=== PATIENT | female | born 1980 | race Caucasian/White ===

== ENCOUNTER 2019-09-17 11:22 | Inpatient (IN) ==
[2019-09-17] MEDS ORDERED: Ondansetron ODT 4 MG TAB.RAPDIS SL ONE (11:36)
[2019-09-17] MEDS ORDERED: Tdap (Boostrix) Vaccine 0.5 ML SYRINGE IM ONE (11:37)
[2019-09-17] MEDS ORDERED: 0.9 % Sodium Chloride 1,000 ML IVC ONE ×2 (11:37→15:22)
[2019-09-17] MEDS ORDERED: Ondansetron 4 MG/2 ML VIAL IVP ONE (11:42)
[2019-09-17 12:24] LABS: Basophils % 0.2 %; Hematocrit 41.8 % (35.3-44.9); Hemoglobin 13.7 g/dL (11.5-15.4); Immature Granulocytes % 0.7 % (0-4); Lymphocytes # 0.9 K/mcL (0.6-4.6); Lymphocytes % 5.8 %; Mean Corpuscular HGB Conc 32.8 g/dL (31.6-35.5); Mean Corpuscular Volume 85.5 fL (83.0-100.0); Mean Platelet Volume 11.4 fL (9.4-12.4); Monocytes % 5.9 %; Neutrophils # 14.1 K/mcL (1.6-8.9); Platelet Count 238 K/mcL (140-400); Red Blood Count 4.89 M/mcL (3.82-4.97); Red Cell Distribution Width 13.6 % (11.5-14.5); Segmented Neutrophils % 87.4 %; White Blood Count 16.2 K/mcL (4.3-11.1)
[2019-09-17 12:46] LABS: Alanine Aminotransferase 65 Units/L (7-52); Albumin 4.3 g/dL (3.5-5.7); Albumin/Globulin Ratio 1.6 (1.1-2.2); Alkaline Phosphatase 87 Units/L (34-104); Aspartate Amino Transferase 65 Units/L (13-39); BUN/Creatinine Ratio 13 (6-26); Bilirubin,Direct 0.1 mg/dL (0.0-0.2); Bilirubin,Indirect 0.2 mg/dL (0.0-1.0); Bilirubin,Total 0.3 mg/dL (0.3-1.0); Blood Urea Nitrogen 10 mg/dL (6-20); Calcium 9.2 mg/dL (8.6-10.3); Carbon Dioxide 23 mEq/L (23-29); Chloride 102 mEq/L (98-107); Globulin 2.7 g/dL (2.4-3.5); Glucose 296 mg/dL (70-105); Lipase 10 Units/L (11-82); Osmolality,Calculated 294 (280-300); Sodium 137 mEq/L (136-145); eGFR For African Americans > 60 (> 60); eGFR For Non-African Americans > 60 (> 60)
[2019-09-17 12:52] LABS: Troponin I 0.22 ng/mL (< 0.04)
[2019-09-17] MEDS ORDERED: Isovue-370 500 ML BOTTLE IVP ONE (12:57)
[2019-09-17] MEDS ORDERED: Aspirin 81 MG TAB.CHEW PO STA (13:03)
[2019-09-17 13:54] LABS: Bilirubin,Urine Negative (Negative); Blood,Urine Negative (Negative); Clarity,Urine Clear (Clear); Color,Urine Yellow (Yellow); Glucose,Urine (UA) >=1000 mg/dL (Normal); Ketones,Urine 40 mg/dL (Negative); Leukocyte Esterase,Urine Negative (Negative); Nitrite,Urine Negative (Negative); PH,Urine 5.5 pH Units (5.0-8.0); Protein,Urine Negative (Neg-Trace); Specific Gravity,Urine > 1.030 (1.010-1.025); Urobilinogen,Urine Normal (Normal)
[2019-09-17 14:11] LABS: Hepatitis B Surface Antigen Nonreactive (Nonreactive)
[2019-09-17 14:39] LABS: Hepatitis C Virus Antibody Nonreactive (Nonreactive)
[2019-09-17 14:40] LABS: Hepatitis B Core IgM Nonreactive (Nonreactive)
[2019-09-17 14:41] LABS: Hepatitis A Antibody IgM Nonreactive (Nonreactive)
[2019-09-17] MEDS ORDERED: Piperacillin/Tazobactam 3.375 GM in 0.9 % Sodium Chloride Mini Bag 100 ML IVPB ONE (15:23)
[2019-09-17] MEDS ORDERED: Nicotine 21 MG PATCH.TD24 TD STA (15:59)
[2019-09-17 16:03] LABS: C-Reactive Protein 9 mg/L (Less than 10)
[2019-09-17 16:17] LABS: Amphetamine Screen,Urine Negative ng/mL (Cutoff=1000); Barbiturate Screen,Urine Negative ng/mL (Cutoff=200); Benzodiazepines Screen,Urine Positive ng/mL (Cutoff=200); Cannabinoid Screen,Urine Positive ng/mL (Cutoff = 50); Cocaine Screen,Urine Negative ng/mL (Cutoff= 300); Opiate Screen,Urine Negative ng/mL (Cutoff=300); Phencyclidine Screen,Urine Negative ng/mL (Cutoff=25)
[2019-09-17] MEDS ORDERED: Naloxone 0.4 MG/ML INJ IVP PRN (17:02)
[2019-09-17] MEDS ORDERED: D5% in Water 1,000 ML IVC PRN (17:11)
[2019-09-17] MEDS ORDERED: *HR* Dextrose 50 % in Water (Syg) 50 ML SYRINGE IVP PRN (17:11)
[2019-09-17] MEDS ORDERED: Dextrose Gel 15 GM/37.5 ML TUBE PO PRN ×2 (17:11)
[2019-09-17 17:25] LABS: Estimated Average Glucose 249 mg/dl
[2019-09-17] MEDS: 0.9 % Sodium Chloride 1,000 ML IVC SCH (19:15)
[2019-09-17] MEDS: *HR* Heparin 5,000 UNIT/ML VIAL SQ SCH (19:16)
[2019-09-17] MEDS: Ondansetron 4 MG/2 ML VIAL IVP PRN (19:16)
[2019-09-17 20:37] LABS: Adenovirus Not Detected (Not Detect); Bordetella Pertussis Not Detected (Not Detect); Chlamydophila pneumoniae Not Detected (Not Detect); Coronavirus 229E Not Detected (Not Detect); Coronavirus HKU1 Not Detected (Not Detect); Coronavirus NL63 Not Detected (Not Detect); Coronavirus OC43 Not Detected (Not Detect); Human Metapneumovirus Not Detected (Not Detect); Human Rhinovirus/Enterovirus Not Detected (Not Detect); Influenza A Subtype 2009 H1 Not Detected (Not Detect); Influenza A Untypeable Not Detected (Not Detect); Influenza B Not Detected (Not Detect); Mycoplasma pneumoniae Not Detected (Not Detect); Parainfluenza Virus 1 Not Detected (Not Detect); Parainfluenza Virus 2 Not Detected (Not Detect); Parainfluenza Virus 3 Not Detected (Not Detect); Parainfluenza Virus 4 Not Detected (Not Detect); Respiratory Syncytial Virus Not Detected (Not Detect)
[2019-09-17] MEDS ORDERED: Menthol 9.1 MG LOZENGE PO PRN (20:44)
[2019-09-17] MEDS: Ibuprofen 400 MG TABLET PO PRN (20:44)
[2019-09-17] MEDS: Insulin LISPRO 300 UNITS/3 ML VIAL SQ SCH (21:18)
[2019-09-17] MEDS: ALPRAZolam 1 MG TABLET PO SCH (21:24)
[2019-09-17] MEDS: Gabapentin 400 MG CAPSULE PO SCH (21:24)
[2019-09-17] MEDS: Insulin DETEMIR 100 UNIT/ML X5UNITS SQ SCH (21:24)
[2019-09-17] MEDS ORDERED: *HR* Promethazine 25 MG/ML VIAL IVP ONE (21:36)
[2019-09-18] MEDS: Piperacillin/Tazobactam 3.375 GM in 0.9 % Sodium Chloride Mini Bag 100 ML IVPB SCH ×4 (00:34→23:58)
[2019-09-18] MEDS: 0.9 % Sodium Chloride 1,000 ML IVC SCH ×3 (03:35→18:27)
[2019-09-18] MEDS: *HR* Heparin 5,000 UNIT/ML VIAL SQ SCH ×2 (05:15→18:27)
[2019-09-18] MEDS: Ibuprofen 400 MG TABLET PO PRN (05:23)
[2019-09-18 06:35] LABS: Basophils % 0.1 %; Eosinophils # 0.1 K/mcL (0.0-0.6); Eosinophils % 1.4 %; Hematocrit 32.1 % (35.3-44.9); Hemoglobin 10.7 g/dL (11.5-15.4); Immature Granulocytes % 0.4 % (0-4); Lymphocytes # 2.4 K/mcL (0.6-4.6); Lymphocytes % 34.7 %; Mean Corpuscular HGB Conc 33.3 g/dL (31.6-35.5); Mean Corpuscular Hemoglobin 28.6 pg (28.0-33.3); Mean Corpuscular Volume 85.8 fL (83.0-100.0); Mean Platelet Volume 11.2 fL (9.4-12.4); Monocytes # 0.6 K/mcL (0.0-1.3); Monocytes % 8.2 %; Neutrophils # 3.9 K/mcL (1.6-8.9); Platelet Count 155 K/mcL (140-400); Red Blood Count 3.74 M/mcL (3.82-4.97); Red Cell Distribution Width 13.7 % (11.5-14.5); Segmented Neutrophils % 55.2 %
[2019-09-18 06:53] LABS: BUN/Creatinine Ratio 13 (6-26); Blood Urea Nitrogen 7 mg/dL (6-20); Calcium 7.9 mg/dL (8.6-10.3); Carbon Dioxide 23 mEq/L (23-29); Chloride 106 mEq/L (98-107); Glucose 283 mg/dL (70-105); Magnesium 1.9 mg/dL (1.6-2.6); Osmolality,Calculated 290 (280-300); Potassium 3.6 mEq/L (3.5-5.1); Sodium 136 mEq/L (136-145); eGFR For African Americans > 60 (> 60); eGFR For Non-African Americans > 60 (> 60)
[2019-09-18] MEDS: Ondansetron 4 MG/2 ML VIAL IVP PRN ×2 (08:09→20:56)
[2019-09-18] MEDS ORDERED: *HR* Promethazine 25 MG/ML VIAL IVP PRN (08:42)
[2019-09-18] MEDS ORDERED: Potassium Phosphate 44 MEQ in 0.9 % Sodium Chloride 250 ML IVPB ONE (10:01)
[2019-09-18] MEDS: Insulin LISPRO 300 UNITS/3 ML VIAL SQ SCH ×4 (10:56→20:34)
[2019-09-18] MEDS: Calcium Gluconate 1gm/50mL 1 GM/50 ML BAG IVPB SCH ×2 (11:44→14:38)
[2019-09-18] MEDS: ALPRAZolam 1 MG TABLET PO SCH ×2 (11:45→20:56)
[2019-09-18] MEDS: Gabapentin 400 MG CAPSULE PO SCH ×4 (11:45→20:55)
[2019-09-18] MEDS: Multivit/Ca/Min/Fe/FA 1 TAB TABLET PO SCH (11:45)
[2019-09-18] MEDS: Acetaminophen 325 MG TABLET PO PRN ×2 (11:45→20:55)
[2019-09-18] MEDS: BuPROPion SR (12 HR) 100 MG TABLET PO SCH (11:45)
[2019-09-18] MEDS: Insulin DETEMIR 100 UNIT/ML X5UNITS SQ SCH (20:35)
[2019-09-18] MEDS: Nicotine 21 MG PATCH.TD24 TD SCH (23:57)
[2019-09-19] MEDS: 0.9 % Sodium Chloride 1,000 ML IVC SCH ×2 (04:09→18:00)
[2019-09-19] MEDS: Ondansetron 4 MG/2 ML VIAL IVP PRN ×2 (04:21→12:48)
[2019-09-19] MEDS: *HR* Heparin 5,000 UNIT/ML VIAL SQ SCH ×2 (05:50→17:57)
[2019-09-19] MEDS: Multivit/Ca/Min/Fe/FA 1 TAB TABLET PO SCH (08:22)
[2019-09-19] MEDS: ALPRAZolam 1 MG TABLET PO SCH ×2 (08:22→20:17)
[2019-09-19] MEDS: Gabapentin 400 MG CAPSULE PO SCH ×4 (08:22→20:16)
[2019-09-19] MEDS: BuPROPion SR (12 HR) 100 MG TABLET PO SCH (08:22)
[2019-09-19] MEDS: Piperacillin/Tazobactam 3.375 GM in 0.9 % Sodium Chloride Mini Bag 100 ML IVPB SCH ×3 (08:23→23:43)
[2019-09-19] MEDS: Nicotine 21 MG PATCH.TD24 TD SCH (08:23)
[2019-09-19] MEDS: Ibuprofen 400 MG TABLET PO PRN (08:30)
[2019-09-19 08:31] LABS: Basophils % 0.3 %; Eosinophils # 0.1 K/mcL (0.0-0.6); Eosinophils % 0.7 %; Hematocrit 32.6 % (35.3-44.9); Hemoglobin 10.4 g/dL (11.5-15.4); Immature Granulocytes % 0.3 % (0-4); Lymphocytes # 2.1 K/mcL (0.6-4.6); Lymphocytes % 28.8 %; Mean Corpuscular HGB Conc 31.9 g/dL (31.6-35.5); Mean Corpuscular Hemoglobin 28.1 pg (28.0-33.3); Mean Corpuscular Volume 88.1 fL (83.0-100.0); Mean Platelet Volume 11.1 fL (9.4-12.4); Monocytes # 0.7 K/mcL (0.0-1.3); Monocytes % 9.3 %; Neutrophils # 4.5 K/mcL (1.6-8.9); Platelet Count 148 K/mcL (140-400); Red Cell Distribution Width 13.5 % (11.5-14.5); Segmented Neutrophils % 60.6 %; White Blood Count 7.4 K/mcL (4.3-11.1)
[2019-09-19] MEDS: Insulin LISPRO 300 UNITS/3 ML VIAL SQ SCH ×4 (08:38→20:18)
[2019-09-19 08:58] LABS: Albumin 3.2 g/dL (3.5-5.7); Albumin/Globulin Ratio 1.4 (1.1-2.2); Bilirubin,Direct 0.3 mg/dL (0.0-0.2); Bilirubin,Indirect 0.5 mg/dL (0.0-1.0); Bilirubin,Total 0.8 mg/dL (0.3-1.0); Globulin 2.3 g/dL (2.4-3.5); Total Protein 5.5 g/dL (6.4-8.9)
[2019-09-19] MEDS: Colchicine 0.6 MG TABLET PO SCH ×2 (12:47→20:17)
[2019-09-19] MEDS: Aspirin 81 MG TAB.CHEW PO SCH (12:47)
[2019-09-19] MEDS ORDERED: Potassium Phosphate 44 MEQ in 0.9 % Sodium Chloride 250 ML IVPB ONE (13:10)
[2019-09-19] MEDS: Ibuprofen 400 MG TABLET PO SCH ×2 (14:54→20:16)
[2019-09-19] MEDS: Doxycycline 100 MG in 0.9 % Sodium Chloride Mini Bag 100 ML IVPB SCH (17:57)
[2019-09-19] MEDS: Insulin DETEMIR 100 UNIT/ML X5UNITS SQ SCH (20:17)
[2019-09-20] MEDS: Acetaminophen 325 MG TABLET PO PRN ×2 (01:31→12:54)
[2019-09-20] MEDS: Ondansetron 4 MG/2 ML VIAL IVP PRN ×2 (01:31→12:55)
[2019-09-20 05:03] LABS: Basophils % 0.6 %; Eosinophils # 0.2 K/mcL (0.0-0.6); Eosinophils % 2.5 %; Hematocrit 34.7 % (35.3-44.9); Immature Granulocytes % 0.7 % (0-4); Lymphocytes # 2.5 K/mcL (0.6-4.6); Lymphocytes % 36.2 %; Mean Corpuscular HGB Conc 31.7 g/dL (31.6-35.5); Mean Corpuscular Hemoglobin 28.4 pg (28.0-33.3); Mean Corpuscular Volume 89.7 fL (83.0-100.0); Mean Platelet Volume 11.2 fL (9.4-12.4); Monocytes # 0.6 K/mcL (0.0-1.3); Monocytes % 9.3 %; Neutrophils # 3.5 K/mcL (1.6-8.9); Platelet Count 183 K/mcL (140-400); Red Blood Count 3.87 M/mcL (3.82-4.97); Red Cell Distribution Width 13.7 % (11.5-14.5); Segmented Neutrophils % 50.7 %; White Blood Count 6.9 K/mcL (4.3-11.1)
[2019-09-20 05:19] LABS: Alanine Aminotransferase 114 Units/L (7-52); Albumin 3.6 g/dL (3.5-5.7); Albumin/Globulin Ratio 1.3 (1.1-2.2); Alkaline Phosphatase 112 Units/L (34-104); Aspartate Amino Transferase 61 Units/L (13-39); BUN/Creatinine Ratio 12 (6-26); Bilirubin,Total 0.4 mg/dL (0.3-1.0); Blood Urea Nitrogen 7 mg/dL (6-20); Calcium 8.9 mg/dL (8.6-10.3); Carbon Dioxide 25 mEq/L (23-29); Chloride 105 mEq/L (98-107); Globulin 2.8 g/dL (2.4-3.5); Glucose 175 mg/dL (70-105); Osmolality,Calculated 292 (280-300); Phosphorous 3.5 mg/dL (2.7-4.5); Potassium 3.6 mEq/L (3.5-5.1); Sodium 140 mEq/L (136-145); Total Protein 6.4 g/dL (6.4-8.9); eGFR For African Americans > 60 (> 60); eGFR For Non-African Americans > 60 (> 60)
[2019-09-20] MEDS: Doxycycline 100 MG in 0.9 % Sodium Chloride Mini Bag 100 ML IVPB SCH (06:14)
[2019-09-20] MEDS: *HR* Heparin 5,000 UNIT/ML VIAL SQ SCH (06:14)
[2019-09-20] MEDS ORDERED: Tiotropium 18 MCG inhalation IH SCH (07:00)
[2019-09-20] MEDS: Multivit/Ca/Min/Fe/FA 1 TAB TABLET PO SCH (07:27)
[2019-09-20] MEDS: BuPROPion SR (12 HR) 100 MG TABLET PO SCH (07:27)
[2019-09-20] MEDS: Aspirin 81 MG TAB.CHEW PO SCH (07:27)
[2019-09-20] MEDS: ALPRAZolam 1 MG TABLET PO SCH (07:27)
[2019-09-20] MEDS: Ibuprofen 400 MG TABLET PO SCH (07:27)
[2019-09-20] MEDS: Gabapentin 400 MG CAPSULE PO SCH ×2 (07:27→12:54)
[2019-09-20] MEDS: Nicotine 21 MG PATCH.TD24 TD SCH (07:28)
[2019-09-20] MEDS: Colchicine 0.6 MG TABLET PO SCH (07:28)
[2019-09-20] MEDS: Piperacillin/Tazobactam 3.375 GM in 0.9 % Sodium Chloride Mini Bag 100 ML IVPB SCH (07:30)
[2019-09-20] MEDS: Insulin LISPRO 300 UNITS/3 ML VIAL SQ SCH ×2 (07:44→11:53)
[2019-09-20 11:55] VITALS: BP 152/91
[2019-09-20] MEDS ORDERED: Aminoglycoside Consult 1 EACH MC ONE (13:29)
== END 2019-09-20 13:30 | disposition home or self-care (01) | DRG 139 ==
LOC: 3ANU 11:22 → EMEROOARM 11:22 → 3ANU 16:59 → SUATTDRO 09-18 13:17
PROVIDERS: ADMIT Internal Medicine; ATTEND Internal Medicine

== ENCOUNTER 2019-10-13 14:05 | Observation (INO) ==
[2019-10-13 14:35] LABS: Basophils % 0.4 %; Eosinophils % 0.4 %; Hematocrit 47.6 % (35.3-44.9); Hemoglobin 15.8 g/dL (11.5-15.4); Immature Granulocytes % 0.5 % (0-4); Lymphocytes # 2.1 K/mcL (0.6-4.6); Lymphocytes % 26.8 %; Mean Corpuscular HGB Conc 33.2 g/dL (31.6-35.5); Mean Corpuscular Hemoglobin 28.1 pg (28.0-33.3); Mean Corpuscular Volume 84.5 fL (83.0-100.0); Mean Platelet Volume 11.3 fL (9.4-12.4); Monocytes # 0.6 K/mcL (0.0-1.3); Monocytes % 7.6 %; Platelet Count 296 K/mcL (140-400); Red Blood Count 5.63 M/mcL (3.82-4.97); Segmented Neutrophils % 64.3 %; White Blood Count 7.8 K/mcL (4.3-11.1)
[2019-10-13] MEDS ORDERED: 0.9 % Sodium Chloride 1,000 ML IVC ONE (14:45)
[2019-10-13] MEDS ORDERED: diazePAM 10 MG/2 ML SYRINGE IVP STA (14:45)
[2019-10-13 15:01] LABS: Alanine Aminotransferase 38 Units/L (7-52); Albumin 4.5 g/dL (3.5-5.7); Albumin/Globulin Ratio 1.6 (1.1-2.2); Alkaline Phosphatase 98 Units/L (34-104); Aspartate Amino Transferase 25 Units/L (13-39); BUN/Creatinine Ratio 22 (6-26); Bilirubin,Total 0.4 mg/dL (0.3-1.0); Blood Urea Nitrogen 17 mg/dL (6-20); Calcium 9.4 mg/dL (8.6-10.3); Carbon Dioxide 22 mEq/L (23-29); Chloride 100 mEq/L (98-107); Globulin 2.8 g/dL (2.4-3.5); Glucose 254 mg/dL (70-105); Osmolality,Calculated 288 (280-300); Potassium 3.8 mEq/L (3.5-5.1); Sodium 134 mEq/L (136-145); Total Protein 7.3 g/dL (6.4-8.9); Troponin I < 0.03 ng/mL (< 0.04); eGFR For African Americans > 60 (> 60); eGFR For Non-African Americans > 60 (> 60)
[2019-10-13] MEDS ORDERED: Acetaminophen 325 MG TABLET PO ONE (15:02)
[2019-10-13 15:04] LABS: Bilirubin,Urine Negative (Negative); Blood,Urine Negative (Negative); Clarity,Urine Clear (Clear); Color,Urine Yellow (Yellow); Glucose,Urine (UA) >=1000 mg/dL (Normal); Ketones,Urine Trace mg/dL (Negative); Leukocyte Esterase,Urine Negative (Negative); Nitrite,Urine Negative (Negative); Protein,Urine Negative (Neg-Trace); Specific Gravity,Urine > 1.030 (1.010-1.025); Urobilinogen,Urine Normal (Normal)
[2019-10-13 15:25] LABS: Carbamazepine (Tegretol) < 1 mcg/mL (4-12)
[2019-10-13] MEDS ORDERED: Naloxone 0.4 MG/ML INJ IVP PRN (19:14)
[2019-10-13] MEDS ORDERED: Ondansetron 4 MG/2 ML VIAL IVP PRN (19:14)
[2019-10-13] MEDS ORDERED: *HR* Dextrose 50 % in Water (Syg) 50 ML SYRINGE IVP PRN (19:16)
[2019-10-13] MEDS ORDERED: D5% in Water 1,000 ML IVC PRN (19:16)
[2019-10-13] MEDS ORDERED: Dextrose Gel 15 GM/37.5 ML TUBE PO PRN ×2 (19:16)
[2019-10-13] MEDS ORDERED: Ipratropium/Albuterol Neb 3 ML IH PRN (19:18)
[2019-10-13] MEDS ORDERED: 0.9 % Sodium Chloride 1,000 ML IVC SCH (20:30)
[2019-10-13] MEDS ORDERED: Insulin DETEMIR 100 UNIT/ML X5UNITS SQ SCH (21:00)
[2019-10-13] MEDS: Nicotine 14 MG PATCH.TD24 TD SCH (21:36)
[2019-10-13] MEDS: ALPRAZolam 0.5 MG TABLET PO SCH (21:37)
[2019-10-13] MEDS: QUEtiapine Fumarate 100 MG TABLET PO SCH (21:37)
[2019-10-13] MEDS: Gabapentin 400 MG CAPSULE PO SCH (21:38)
[2019-10-13] MEDS: *HR* Heparin 5,000 UNIT/ML VIAL SQ SCH (21:38)
[2019-10-14] MEDS ORDERED: traZODone 50 MG TABLET PO ONE (01:06)
[2019-10-14 02:05] LABS: INR 0.9; Prothrombin Time 10.6 Seconds (9.4-12.1)
[2019-10-14 02:08] LABS: Activated Partial Thrombo Time 30.7 Seconds (26.0-36.0)
[2019-10-14 02:22] LABS: BUN/Creatinine Ratio 20 (6-26); Blood Urea Nitrogen 13 mg/dL (6-20); Calcium 8.6 mg/dL (8.6-10.3); Carbon Dioxide 22 mEq/L (23-29); Chloride 107 mEq/L (98-107); Glucose 201 mg/dL (70-105); Magnesium 1.9 mg/dL (1.6-2.6); Osmolality,Calculated 294 (280-300); Phosphorous 2.3 mg/dL (2.7-4.5); Potassium 3.8 mEq/L (3.5-5.1); Sodium 139 mEq/L (136-145); eGFR For African Americans > 60 (> 60); eGFR For Non-African Americans > 60 (> 60)
[2019-10-14] MEDS: ALPRAZolam 0.5 MG TABLET PO SCH ×4 (03:08→22:07)
[2019-10-14] MEDS: *HR* Heparin 5,000 UNIT/ML VIAL SQ SCH ×3 (06:22→22:07)
[2019-10-14] MEDS: Gabapentin 400 MG CAPSULE PO SCH ×4 (08:47→22:07)
[2019-10-14] MEDS: Aspirin 81 MG TAB.CHEW PO SCH (08:48)
[2019-10-14] MEDS: Insulin LISPRO 300 UNITS/3 ML VIAL SQ SCH ×3 (08:48→17:02)
[2019-10-14] MEDS: BuPROPion SR (12 HR) 100 MG TABLET PO SCH (08:48)
[2019-10-14] MEDS: Acetaminophen 325 MG TABLET PO PRN (17:02)
[2019-10-14] MEDS: QUEtiapine Fumarate 100 MG TABLET PO SCH (22:07)
[2019-10-14] MEDS: Nicotine 14 MG PATCH.TD24 TD SCH (22:08)
[2019-10-14] MEDS: Colchicine 0.6 MG TABLET PO SCH (22:15)
[2019-10-15] MEDS: ALPRAZolam 0.5 MG TABLET PO SCH ×5 (03:09→20:34)
[2019-10-15 04:45] LABS: BUN/Creatinine Ratio 21 (6-26); Blood Urea Nitrogen 11 mg/dL (6-20); Calcium 8.2 mg/dL (8.6-10.3); Carbon Dioxide 23 mEq/L (23-29); Chloride 100 mEq/L (98-107); Glucose 329 mg/dL (70-105); Magnesium 1.8 mg/dL (1.6-2.6); Osmolality,Calculated 286 (280-300); Phosphorous 3.2 mg/dL (2.7-4.5); Potassium 3.6 mEq/L (3.5-5.1); Sodium 132 mEq/L (136-145); eGFR For African Americans > 60 (> 60); eGFR For Non-African Americans > 60 (> 60)
[2019-10-15] MEDS: *HR* Heparin 5,000 UNIT/ML VIAL SQ SCH ×3 (05:33→20:35)
[2019-10-15] MEDS: Insulin LISPRO 300 UNITS/3 ML VIAL SQ SCH ×3 (08:15→17:33)
[2019-10-15] MEDS: Colchicine 0.6 MG TABLET PO SCH ×2 (08:15→20:35)
[2019-10-15] MEDS: BuPROPion SR (12 HR) 100 MG TABLET PO SCH (08:16)
[2019-10-15] MEDS: Gabapentin 400 MG CAPSULE PO SCH ×4 (08:16→20:35)
[2019-10-15] MEDS: Aspirin 81 MG TAB.CHEW PO SCH (08:16)
[2019-10-15] MEDS ORDERED: INSULIN DEGLUDEC 60 UNIT SQ SCH (09:00)
[2019-10-15] MEDS ORDERED: (Empagliflozin [Jardiance] 25 MG) PO SCH (09:00)
[2019-10-15] MEDS ORDERED: Tiotropium 18 MCG inhalation IH SCH (10:00)
[2019-10-15] MEDS: Acetaminophen 325 MG TABLET PO PRN (16:15)
[2019-10-15] MEDS ORDERED: *HR* Metformin 500 MG TABLET PO SCH (17:00)
[2019-10-15 19:19] VITALS: BP 137/79
[2019-10-15] MEDS: Nicotine 14 MG PATCH.TD24 TD SCH (20:34)
[2019-10-15] MEDS ORDERED: QUEtiapine Fumarate 100 MG TABLET PO SCH (21:00)
== END 2019-10-15 21:06 | disposition critical access hospital (66) ==
LOC: EMEROOARM 14:05 → 3BNU 14:05 → SUATTDRO 18:47 → 3BNU 19:32
PROVIDERS: ADMIT Student in an Organized Health Care Education/Training Program; ATTEND Internal Medicine

== ENCOUNTER 2022-01-15 21:08 | Inpatient (IN) ==
[2022-01-16] MEDS ORDERED: Naloxone 0.4 MG/ML INJ IVP PRN (01:34)
[2022-01-16] MEDS ORDERED: Melatonin 3 MG TABLET PO PRN (01:34)
[2022-01-16] MEDS ORDERED: Perflutren Lipid Microsphere 1.3 ML in 0.9 % Sodium Chloride 8.7 ML IVP PRN (01:50)
[2022-01-16 02:13] LABS: Basophils # 0.1 K/mcL (0.0-0.2); Basophils % 0.4 %; Eosinophils % 0.1 %; Hematocrit 29.9 % (35.3-44.9); Hemoglobin 9.9 g/dL (11.5-15.4); Immature Granulocytes % 2.6 % (0-4); Lymphocytes # 2.7 K/mcL (0.6-4.6); Lymphocytes % 17.5 %; Mean Corpuscular HGB Conc 33.1 g/dL (31.6-35.5); Mean Corpuscular Hemoglobin 25.9 pg (28.0-33.3); Mean Corpuscular Volume 78.3 fL (83.0-100.0); Mean Platelet Volume 10.1 fL (9.4-12.4); Monocytes % 6.8 %; Neutrophils # 11.1 K/mcL (1.6-8.9); Platelet Count 355 K/mcL (140-400); Red Blood Count 3.82 M/mcL (3.82-4.97); Red Cell Distribution Width 14.1 % (11.5-14.5); Segmented Neutrophils % 72.6 %; White Blood Count 15.2 K/mcL (4.3-11.1)
[2022-01-16] MEDS: Ketorolac 30 MG/ML VIAL IVP PRN ×2 (02:13→08:42)
[2022-01-16] MEDS: Acetaminophen 325 MG TABLET PO PRN ×2 (02:13→10:01)
[2022-01-16 02:21] LABS: INR 1.2; Prothrombin Time 13.6 Seconds (9.4-12.1)
[2022-01-16 02:24] LABS: Activated Partial Thrombo Time 27.3 Seconds (26.0-36.0)
[2022-01-16 02:28] LABS: BUN/Creatinine Ratio 6 (6-26); Blood Urea Nitrogen 3 mg/dL (6-20); Calcium 7.8 mg/dL (8.6-10.3); Carbon Dioxide 23 mEq/L (23-29); Chloride 101 mEq/L (98-107); Glucose 163 mg/dL (70-105); Osmolality,Calculated 276 (280-300); Potassium 3.2 mEq/L (3.5-5.1); Sodium 133 mEq/L (136-145); eGFR For African Americans > 60 (> 60); eGFR For Non-African Americans > 60 (> 60)
[2022-01-16 02:29] LABS: Chol/HDL Ratio 7.8 (0-4.9); Magnesium 1.5 mg/dL (1.6-2.6); Phosphorous 1.3 mg/dL (2.7-4.5)
[2022-01-16] MEDS ORDERED: Potassium Phosphate 44 MEQ in 0.9 % Sodium Chloride 250 ML IVPB ONE (02:48)
[2022-01-16 02:50] LABS: Alanine Aminotransferase 40 Units/L (7-52); Albumin 2.5 g/dL (3.5-5.7); Albumin/Globulin Ratio 0.7 (1.1-2.2); Alkaline Phosphatase 299 Units/L (34-104); Aspartate Amino Transferase 41 Units/L (13-39); Bilirubin,Indirect 0.5 mg/dL (0.0-1.0); Bilirubin,Total 0.5 mg/dL (0.3-1.0); C-Reactive Protein 79 mg/L (Less than 10); Globulin 3.6 g/dL (2.4-3.5); Total Protein 6.1 g/dL (6.4-8.9)
[2022-01-16 03:03] LABS: Thyroid Stimulating Hormone 3.124 mcIU/mL (0.340-5.600)
[2022-01-16 03:07] LABS: Procalcitonin 0.62 ng/mL (0.00-0.15)
[2022-01-16] MEDS ORDERED: *HR* Dextrose 50 % in Water (Syg) 50 ML SYRINGE IVP PRN (03:16)
[2022-01-16] MEDS ORDERED: Dextrose 4 GM Chewable Tablets PO PRN ×2 (03:16)
[2022-01-16] MEDS ORDERED: D5% in Water 1,000 ML IVC PRN (03:16)
[2022-01-16] MEDS ORDERED: Nicotine 21 MG PATCH.TD24 TD PRN (03:20)
[2022-01-16 03:39] LABS: Hepatitis B Surface Antigen Nonreactive (Nonreactive)
[2022-01-16] MEDS ORDERED: Potassium Chloride Elixir 20 MEQ/15 ML UDC PO ONE (03:39)
[2022-01-16] MEDS: Ondansetron ODT 4 MG TAB.RAPDIS SL PRN (03:41)
[2022-01-16 04:07] LABS: Hepatitis B Core IgM Nonreactive (Nonreactive)
[2022-01-16 04:10] LABS: Hepatitis A Antibody IgM Nonreactive (Nonreactive)
[2022-01-16] MEDS ORDERED: Gadolinium Contrast Agent (WT Based) IV PRN (04:46)
[2022-01-16 04:58] LABS: Amphetamine Screen,Urine Negative ng/mL (Cutoff=1000); Barbiturate Screen,Urine Negative ng/mL (Cutoff=200); Benzodiazepines Screen,Urine Negative ng/mL (Cutoff=200); Cannabinoid Screen,Urine Negative ng/mL (Cutoff = 50); Cocaine Screen,Urine Negative ng/mL (Cutoff= 300); Opiate Screen,Urine Positive ng/mL (Cutoff=300); Phencyclidine Screen,Urine Negative ng/mL (Cutoff=25)
[2022-01-16 05:36] LABS: Hepatitis C Virus Antibody Reactive (Nonreactive)
[2022-01-16] MEDS: Piperacillin/Tazobactam 3.375 GM in 0.9 % Sodium Chloride Mini Bag 100 ML IVPB SCH ×3 (05:46→21:05)
[2022-01-16] MEDS: *HR* Enoxaparin 80 MG/0.8 ML SYRINGE SQ SCH ×2 (05:50→16:43)
[2022-01-16] MEDS ORDERED: *HR* Heparin 5,000 UNIT/ML VIAL SQ SCH (06:00)
[2022-01-16] MEDS: Insulin LISPRO 300 UNITS/3 ML VIAL SUBQ SCH ×3 (08:47→16:45)
[2022-01-16] MEDS: Vancomycin 1,250 MG/262.5 ML IV.SOLN IVPB SCH ×2 (10:39→21:04)
[2022-01-16] MEDS: *HR* HYDROcodone/Acet 10/325 mg TABLET PO PRN ×2 (14:07→20:10)
[2022-01-17] MEDS: Ketorolac 30 MG/ML VIAL IVP PRN ×3 (00:48→13:22)
[2022-01-17] MEDS: *HR* HYDROcodone/Acet 10/325 mg TABLET PO PRN ×4 (02:11→20:46)
[2022-01-17] MEDS: Piperacillin/Tazobactam 3.375 GM in 0.9 % Sodium Chloride Mini Bag 100 ML IVPB SCH (04:51)
[2022-01-17] MEDS: *HR* Enoxaparin 80 MG/0.8 ML SYRINGE SQ SCH (04:52)
[2022-01-17] MEDS: Insulin LISPRO 300 UNITS/3 ML VIAL SUBQ SCH ×3 (08:01→17:22)
[2022-01-17 09:44] LABS: Alanine Aminotransferase 28 Units/L (7-52); Albumin 2.7 g/dL (3.5-5.7); Albumin/Globulin Ratio 0.8 (1.1-2.2); Alkaline Phosphatase 287 Units/L (34-104); Aspartate Amino Transferase 12 Units/L (13-39); BUN/Creatinine Ratio 11 (6-26); Bilirubin,Total 0.4 mg/dL (0.3-1.0); Blood Urea Nitrogen 5 mg/dL (6-20); Calcium 8.5 mg/dL (8.6-10.3); Carbon Dioxide 21 mEq/L (23-29); Chloride 97 mEq/L (98-107); Globulin 3.6 g/dL (2.4-3.5); Glucose 349 mg/dL (70-105); Osmolality,Calculated 279 (280-300); Sodium 129 mEq/L (136-145); Total Protein 6.3 g/dL (6.4-8.9); Vancomycin,Trough 6 mcg/mL (5-10); eGFR For African Americans > 60 (> 60); eGFR For Non-African Americans > 60 (> 60)
[2022-01-17] MEDS: Vancomycin 1,250 MG/262.5 ML IV.SOLN IVPB SCH ×3 (11:18→20:08)
[2022-01-17] MEDS ORDERED: Insulin DETEMIR 100 UNIT/ML X5UNITS SUBQ ONE (11:30)
[2022-01-17] MEDS ORDERED: Isovue-370 500 ML BOTTLE IVP ONE (11:34)
[2022-01-17] MEDS ORDERED: 0.9 % Sodium Chloride 1,000 ML IVC SCH (11:45)
[2022-01-17 13:38] LABS: Basophils # 0.1 K/mcL (0.0-0.2); Basophils % 0.6 %; Eosinophils % 0.3 %; Hemoglobin 11.2 g/dL (11.5-15.4); Immature Granulocytes % 3.5 % (0-4); Lymphocytes # 3.1 K/mcL (0.6-4.6); Mean Corpuscular Hemoglobin 25.8 pg (28.0-33.3); Mean Corpuscular Volume 80.6 fL (83.0-100.0); Monocytes # 0.9 K/mcL (0.0-1.3); Monocytes % 7.5 %; Neutrophils # 7.9 K/mcL (1.6-8.9); Nucleated Red Blood Cells 0.2 /100 WBC (0); Platelet Count 438 K/mcL (140-400); Red Blood Count 4.34 M/mcL (3.82-4.97); Red Cell Distribution Width 14.7 % (11.5-14.5); Segmented Neutrophils % 63.1 %; White Blood Count 12.5 K/mcL (4.3-11.1)
[2022-01-17 16:24] LABS: Estimated Average Glucose 404 mg/dl; Hemoglobin A1C 15.7 %
[2022-01-17] MEDS ORDERED: *HR* Metoprolol 5 MG/5 ML VIAL IVP STA (18:35)
[2022-01-17] MEDS ORDERED: Morphine Sulfate 2 MG/ML SYRINGE IVP STA (18:58)
[2022-01-17] MEDS: Ondansetron ODT 4 MG TAB.RAPDIS SL PRN (19:09)
[2022-01-17] MEDS ORDERED: Acetaminophen IV 1,000 MG/100 ML BAG IVPB ONE (20:03)
[2022-01-17] MEDS ORDERED: Insulin DETEMIR 100 UNIT/ML X5UNITS SUBQ SCH (21:00)
[2022-01-18] MEDS ORDERED: Ketorolac 30 MG/ML VIAL IVP ONE (01:13)
[2022-01-18 02:11] LABS: Hematocrit 32.7 % (35.3-44.9); Hemoglobin 10.6 g/dL (11.5-15.4); Mean Corpuscular HGB Conc 32.4 g/dL (31.6-35.5); Mean Corpuscular Hemoglobin 25.9 pg (28.0-33.3); Mean Platelet Volume 9.9 fL (9.4-12.4); Platelet Count 452 K/mcL (140-400); Red Blood Count 4.09 M/mcL (3.82-4.97); Red Cell Distribution Width 14.5 % (11.5-14.5); White Blood Count 14.5 K/mcL (4.3-11.1)
[2022-01-18] MEDS: *HR* HYDROcodone/Acet 10/325 mg TABLET PO PRN ×3 (03:57→17:28)
[2022-01-18] MEDS: Vancomycin 1,250 MG/262.5 ML IV.SOLN IVPB SCH ×2 (03:57→11:59)
[2022-01-18 05:29] LABS: Chloride 97 mEq/L (98-107); Potassium 3.7 mEq/L (3.5-5.1); Sodium 130 mEq/L (136-145)
[2022-01-18] MEDS ORDERED: *HR* Enoxaparin 40 MG/0.4 ML SYRINGE SQ SCH (06:00)
[2022-01-18 06:17] LABS: Alanine Aminotransferase 20 Units/L (7-52); Albumin 2.7 g/dL (3.5-5.7); Albumin/Globulin Ratio 0.7 (1.1-2.2); Alkaline Phosphatase 257 Units/L (34-104); Aspartate Amino Transferase 10 Units/L (13-39); BUN/Creatinine Ratio 10 (6-26); Bilirubin,Total 0.3 mg/dL (0.3-1.0); Blood Urea Nitrogen 4 mg/dL (6-20); Calcium 8.3 mg/dL (8.6-10.3); Carbon Dioxide 19 mEq/L (23-29); Globulin 3.9 g/dL (2.4-3.5); Glucose 248 mg/dL (70-105); Osmolality,Calculated 275 (280-300); Total Protein 6.6 g/dL (6.4-8.9); eGFR For African Americans > 60 (> 60); eGFR For Non-African Americans > 60 (> 60)
[2022-01-18] MEDS: Insulin LISPRO 300 UNITS/3 ML VIAL SUBQ SCH ×3 (09:54→17:29)
[2022-01-18] MEDS ORDERED: 0.9 % Sodium Chloride 1,000 ML IVC SCH (10:15)
[2022-01-18] MEDS ORDERED: Lidocaine -MPF 1% 5 ML AMPUL INFILT ONE (10:26)
[2022-01-18] MEDS ORDERED: cefTRIAXone 2,000 MG in 0.9 % Sodium Chloride 20 ML IVPB SCH (11:00)
[2022-01-18] MEDS: Morphine Sulfate 2 MG/ML SYRINGE IVP PRN ×2 (11:48→16:17)
[2022-01-18] MEDS ORDERED: *HR* Metoprolol 5 MG/5 ML VIAL IVP PRN (15:47)
[2022-01-18] MEDS ORDERED: Gadolinium Contrast Agent (WT Based) IV PRN (16:19)
[2022-01-18 16:40] VITALS: BP 182/93; PULSE 112; TEMP 98.6; O2SAT 97
== END 2022-01-18 18:27 | disposition short-term general hospital (02) | DRG 720 ==
LOC: 2NENU → SUATTDRO 01-16 02:25
PROVIDERS: ADMIT Internal Medicine; ATTEND Family Medicine